=== PATIENT | female | born 1975 | race Two or more races ===

== ENCOUNTER 2021-06-21 10:22 | Emergency (ER) | payer BC, MEDICAID ==
[~2021-06-21] VITALS: Ht 154.9 cm; Wt 100.0 kg
[~2021-06-21 10:22] MED LIST: ONDA8TAB6 PO
[2021-06-21 10:31] VITALS: BP 130/80
[2021-06-21] MEDS ORDERED: oxyCODONE IR 5mg (immed. release) tablet PO ONE (15:45)
[2021-06-21] MEDS ORDERED: PER5325T PO (16:08)
== END 2021-06-21 16:15 | disposition home or self-care (01) ==
LOC: ER 10:23
DX: S52.572A Other intraarticular fracture of lower end of left radius, initial encounter for closed fracture (principal); S52.612A Displaced fracture of left ulna styloid process, initial encounter for closed fracture; M25.532 Pain in left wrist; Z90.89 Acquired absence of other organs; Z98.890 Other specified postprocedural states; Z56.0 Unemployment, unspecified; Z79.899 Other long term (current) drug therapy; W00.0XXA Fall on same level due to ice and snow, initial encounter; Y93.89 Activity, other specified; Y92.89 Other specified places as the place of occurrence of the external cause; Y99.8 Other external cause status
CPT/HCPCS: 29125; 73110; 99284